=== PATIENT | male | born 1970 | race African-American/Black ===

== ENCOUNTER 2025-04-06 09:24 | Emergency (ER) | payer SELFPAY ==
[~2025-04-06] VITALS: Ht 188 cm; Wt 120.0 kg
[2025-04-06 09:37] VITALS: TEMP 37.1; O2SAT 100
[2025-04-06] MEDS ORDERED: METH-653 MT (10:13)
[2025-04-06] MEDS: IBUPROFEN 600MG TABLET PO ONE (10:19)
[2025-04-06 10:26] VITALS: BP 143/99; PULSE 66; RESP 18; O2SAT 100
== END 2025-04-06 10:30 | disposition home or self-care (01) ==
LOC: ER 09:24
DX: M54.50 Low back pain, unspecified (principal); M54.2 Cervicalgia; J45.909 Unspecified asthma, uncomplicated
CPT/HCPCS: 99283; Z7610